=== PATIENT | male | born 1935 | race Caucasian/White ===

== ENCOUNTER 2017-01-16 07:55 | Emergency (ER) | payer OTHER ==
[~2017-01-16] VITALS: Ht 177.8 cm; Wt 94.5 kg
[~2017-01-16 07:55] MED LIST: ALLOPURINOL300 MG PO; AMLODIPINE BESY10 MG PO; AMLODIPINE BESYL5 MG PO; ASPIRIN325 MG PO; CIPRO500 MG PO; CLOPIDOGREL75 MG PO; Coumadin Daily Dose PO; DULCOLAX10 MG PR; ENDOCET 5-3251 EACH PO; ERGOCALCIF50000 UNIT PO; HUMIBID LA,MUC600 MG PO; HYDRALAZINE HCL50 MG PO; LANTUS 3 M100 UNITS/ SC; LEVEMIR FL100 UNIT/1 SC; LEVEMIR100 UNIT/2 SC; LIDOCAINE700 MG TD; LIPITOR10 MG PO; METOPROLOL SUCC50 MG PO; NOVOLOG PE100 UNITS/ SC; PERCOCET 5/31 TABLET PO; PLAVIX75 MG PO; PRAVACHOL40 MG PO; PRAVASTATIN SOD40 MG PO; PROAIR HFA8.5 GM IH; PROVENTIL,2.5 MG/3 M IH; PULMICORT0.5 MG/21 IH; SENNA-TIME S T1 EACH PO; SINGULAIR10 MG PO; Sodium Bicarbonate PO; THEO-24200 MG PO; TRAMADOL HCL50 MG PO; TYLENOL WITH C1 EACH PO; Tylenol Regular Stre PO; ULORIC40 MG PO; ZESTRIL20 MG PO; Zestril,Prinivil PO
[2017-01-16 08:46] LABS: EOSINOPHIL (%) 4.3 % (0-5); EOSINOPHIL COUNT 0.5 K/uL (0-0.3); HEMATOCRIT 38.7 % (38.0-50.0); IMMATURE GRANULOCYTE (%) 0.2 % (0.0-0.7); INSTRUMENT ABS NEUTROPHIL CT 7.9 K/uL; LYMPHOCYTE COUNT 1.3 K/uL (1.0-2.8); MCH 30.4 PG (29.0-34.0); MCV 94.9 FL (86-99); MEAN PLAT.VOLUME 9.7 uM^3 (9.0-12.4); MONOCYTE (%) 8.1 % (3-12); MONOCYTE COUNT 0.9 K/uL (0-0.8); NEUTROPHIL (%) 74.9 % (45-76); NEUTROPHIL COUNT 7.9 K/uL (1.8-6.4); PLATELET COUNT 247 K/uL (156-360); RBC DIS.WIDTH-CV 14.7 % (11.8-14.6); RBC DIS.WIDTH-SD 51.2 % (39-53); RED BLOOD COUNT 4.08 M/uL (4.00-5.50); WHITE BLOOD COUNT 10.6 K/uL (4.1-10.2)
[2017-01-16 08:59] LABS: CHLORIDE 108 mEq/L (99-109); POTASSIUM 4.8 mEq/L (3.7-5.4); SODIUM 141 mEq/L (136-147)
[2017-01-16 09:01] LABS: GLUCOSE 243 mg/dL (70-99)
[2017-01-16 09:02] LABS: ANION GAP 14 MEQ/L (2-14)
[2017-01-16 09:05] LABS: GFR ESTIMATE (CALCULATED) 11 mL/min/; UREA NITROGEN (BUN) 41 mg/dL (9-23)
[2017-01-16] MEDS ORDERED: CITRATE OF MAG296 ML PO (12:37)
[2017-01-16 12:47] VITALS: BP 138/101
== END 2017-01-16 12:48 | disposition home or self-care (01) ==
LOC: EME 07:55
PROVIDERS: Emergency Medicine
DX: K56.41 Fecal impaction (principal); I12.9 Hypertensive chronic kidney disease with stage 1 through stage 4 chronic kidney disease, or unspecified chronic kidney disease; E11.22 Type 2 diabetes mellitus with diabetic chronic kidney disease; N18.9 Chronic kidney disease, unspecified; Z79.4 Long term (current) use of insulin; Z79.82 Long term (current) use of aspirin; Z85.51 Personal history of malignant neoplasm of bladder; Z93.6 Other artificial openings of urinary tract status; Z87.891 Personal history of nicotine dependence
CPT/HCPCS: 74020; 80048; 85025; 99281; 99284

== ENCOUNTER 2017-01-30 11:27 | Inpatient (IN) | payer OTHER ==
[~2017-01-30] VITALS: Ht 180.3 cm; Wt 89.3 kg
[~2017-01-30 11:27] MED LIST changes: +CITRATE OF MAG296 ML PO
[2017-01-30 12:05] LABS: MCH 30.8 PG (29.0-34.0); MCHC 32.8 G/DL (30.0-36.0); PLATELET COUNT 304 K/uL (156-360); RBC DIS.WIDTH-CV 14.7 % (11.8-14.6); RBC DIS.WIDTH-SD 50.4 % (39-53); RED BLOOD COUNT 3.83 M/uL (4.00-5.50); WHITE BLOOD COUNT 14.8 K/uL (4.1-10.2)
[2017-01-30 12:16] LABS: CHLORIDE 113 mEq/L (99-109); POTASSIUM 5.4 mEq/L (3.7-5.4); SODIUM 138 mEq/L (136-147)
[2017-01-30 12:18] LABS: GLUCOSE 165 mg/dL (70-99)
[2017-01-30 12:19] LABS: ANION GAP 8 MEQ/L (2-14)
[2017-01-30 12:20] LABS: TOTAL BILIRUBIN 0.5 mg/dL (0.0-1.0)
[2017-01-30 12:21] LABS: ALKALINE PHOSPHATASE 73 IU/L (3-129)
[2017-01-30 12:22] LABS: GFR ESTIMATE (CALCULATED) 12 mL/min/
[2017-01-30 12:23] LABS: UREA NITROGEN (BUN) 71 mg/dL (9-23)
[2017-01-30 13:20] LABS: INTER. NORMALIZED RATIO 1.1; PROTHROMBIN TIME 12.5 SEC (10.2-12.9)
[2017-01-30] MEDS ORDERED: NOVOLOG PE100 UNITS/ SC (15:03)
[2017-01-30 17:23] VITALS: BP 150/74
[2017-01-30 19:58] VITALS: BP 164/68
[2017-01-30 21:19] LABS: ADD MIUA? YES; BILIRUBIN NEGATIVE; BLOOD SMALL; COLOR YELLOW ((YELLOW)); GLUCOSE (STRIP) 50; KETONES NEGATIVE; LEUKOCYTES LARGE; NITRITE NEGATIVE; PROTEIN (STRIP) 100; SPECIFIC GRAVITY 1.011 (1.000-1.030); UROBILINOGEN 0.2 MG/DL (0.2-1.0)
[2017-01-30 22:00] LABS: EPITHELIAL CELLS RARE /HPF; MUCUS RARE /LPF; WHITE BLOOD CELLS TNTC /HPF (0-5)
[2017-01-30 22:01] LABS: BACTERIA 1+ /HPF; CASTS PRESENT /LPF; CRYSTALS NONE SEEN; HYALINE CASTS 0-5 /LPF; UCUL ADDED? YES
[2017-01-30 23:44] VITALS: BP 134/63
[2017-01-31 03:19] VITALS: BP 149/70; BP 163/68
[2017-01-31 06:46] LABS: EOSINOPHIL (%) 2.7 % (0-5); EOSINOPHIL COUNT 0.4 K/uL (0-0.3); HEMATOCRIT 36.7 % (38.0-50.0); IMMATURE GRANULOCYTE (%) 0.3 % (0.0-0.7); LYMPHOCYTE COUNT 1.5 K/uL (1.0-2.8); MCH 31.7 PG (29.0-34.0); MCHC 33.5 G/DL (30.0-36.0); MCV 94.6 FL (86-99); MEAN PLAT.VOLUME 10.5 uM^3 (9.0-12.4); MONOCYTE (%) 6.1 % (3-12); MONOCYTE COUNT 0.8 K/uL (0-0.8); NEUTROPHIL (%) 79.8 % (45-76); PLATELET COUNT 282 K/uL (156-360); RBC DIS.WIDTH-CV 14.9 % (11.8-14.6); RBC DIS.WIDTH-SD 51.6 % (39-53); RED BLOOD COUNT 3.88 M/uL (4.00-5.50); WHITE BLOOD COUNT 13.8 K/uL (4.1-10.2)
[2017-01-31 07:06] LABS: ANION GAP 12 MEQ/L (2-14); CHLORIDE 113 MEQ/L (99-109); GFR ESTIMATE (CALCULATED) 13 mL/min/; POTASSIUM 5.1 MEQ/L (3.7-5.4); SAMPLE HEMOLYSIS CHECK 0; SAMPLE ICTERIC CHECK 0; SAMPLE LIPEMIA CHECK 0; SODIUM 140 MEQ/L (136-147); UREA NITROGEN (BUN) 64 mg/dL (9-23)
[2017-01-31 07:09] LABS: GLUCOSE 74 mg/dL (70-99)
[2017-01-31 07:35] VITALS: BP 136/64
[2017-01-31 10:40] LABS: AHBS INDEX 0.28; HBSG INDEX 0.16; HEPATITIS B SURFACE ANTIBODY Nonreactive
[2017-01-31 11:22] VITALS: BP 150/74
[2017-01-31] MEDS ORDERED: AMLODIPINE BESY10 MG PO (14:54)
[2017-01-31] MEDS ORDERED: CARVEDILOL12.5 MG PO (14:55)
[2017-01-31] MEDS ORDERED: CALCITRIOL0.25 MCG PO (14:55)
[2017-01-31 15:28] VITALS: BP 143/65
[2017-01-31 16:42] LABS: POINT-OF-CARE METER ID UU14188625
[2017-01-31 19:37] VITALS: BP 145/67
[2017-01-31 22:10] LABS: POINT-OF-CARE METER ID UU14188625
[2017-01-31 23:49] VITALS: BP 140/66
[2017-02-01 04:44] VITALS: BP 147/67
[2017-02-01 07:02] LABS: HEMATOCRIT 36.5 % (38.0-50.0); MCH 31.6 PG (29.0-34.0); MCV 93.1 FL (86-99); MEAN PLAT.VOLUME 10.3 uM^3 (9.0-12.4); PLATELET COUNT 213 K/uL (156-360); RBC DIS.WIDTH-CV 14.6 % (11.8-14.6); RBC DIS.WIDTH-SD 49.7 % (39-53); RED BLOOD COUNT 3.92 M/uL (4.00-5.50); WHITE BLOOD COUNT 10.3 K/uL (4.1-10.2)
[2017-02-01 07:29] LABS: ANION GAP 12 MEQ/L (2-14); CHLORIDE 108 MEQ/L (99-109); POTASSIUM 4.4 MEQ/L (3.7-5.4); SAMPLE HEMOLYSIS CHECK 0; SAMPLE ICTERIC CHECK 0; SAMPLE LIPEMIA CHECK 0; SODIUM 141 MEQ/L (136-147); UREA NITROGEN (BUN) 45 mg/dL (9-23)
[2017-02-01 07:30] LABS: GFR ESTIMATE (CALCULATED) 17 mL/min/; GLUCOSE 120 mg/dL (70-99)
[2017-02-01 08:00] VITALS: BP 158/74
[2017-02-01 08:31] LABS: POINT-OF-CARE METER ID UU14188625
[2017-02-01 11:15] VITALS: BP 152/78
[2017-02-01] MEDS ORDERED: CARVEDILOL12.5 MG PO (15:13)
[2017-02-01] MEDS ORDERED: ELIQUIS2.5 MG PO (15:14)
[2017-02-01] MEDS ORDERED: HYDROCODON-ACE1 EAC7 PO (15:14)
[2017-02-01 17:52] LABS: POINT-OF-CARE METER ID UU14188625
[2017-02-01 20:31] VITALS: BP 139/76
[2017-02-01 22:13] LABS: POINT-OF-CARE METER ID UU13113717
[2017-02-01 23:38] VITALS: BP 149/61
[2017-02-02 06:12] LABS: EOSINOPHIL (%) 0 % (0-5); HEMATOCRIT 36.1 % (38.0-50.0); IMMATURE GRANULOCYTE (%) 0.5 % (0.0-0.7); INSTRUMENT ABS NEUTROPHIL CT 6.8 K/uL; LYMPHOCYTE COUNT 0.7 K/uL (1.0-2.8); MCH 31.8 PG (29.0-34.0); MCHC 33.5 G/DL (30.0-36.0); MONOCYTE (%) 2.9 % (3-12); MONOCYTE COUNT 0.2 K/uL (0-0.8); NEUTROPHIL (%) 87.7 % (45-76); NEUTROPHIL COUNT 6.8 K/uL (1.8-6.4); PLATELET COUNT 194 K/uL (156-360); RBC DIS.WIDTH-CV 14.3 % (11.8-14.6); RBC DIS.WIDTH-SD 49.4 % (39-53); WHITE BLOOD COUNT 7.8 K/uL (4.1-10.2)
[2017-02-02 06:37] LABS: ANION GAP 12 MEQ/L (2-14); CHLORIDE 102 MEQ/L (99-109); GFR ESTIMATE (CALCULATED) 19 mL/min/; MAGNESIUM 1.9 mg/dl (1.3-2.7); POTASSIUM 4.8 MEQ/L (3.7-5.4); SAMPLE HEMOLYSIS CHECK 0; SAMPLE ICTERIC CHECK 0; SAMPLE LIPEMIA CHECK 0; SODIUM 139 MEQ/L (136-147); UREA NITROGEN (BUN) 38 mg/dL (9-23)
[2017-02-02 06:39] LABS: GLUCOSE 352 mg/dL (70-99)
[2017-02-02 07:30] VITALS: BP 140/64
[2017-02-02] MEDS ORDERED: CARDIZEM30 MG PO (10:56)
[2017-02-02] MEDS ORDERED: LO-DOSE ASPIRIN81 M1 PO (10:57)
[2017-02-02 11:11] VITALS: BP 152/68
== END 2017-02-02 12:00 | disposition home or self-care (01) | DRG 683 ==
LOC: EME 11:27 → 5SOUTH 13:23 → EDOF 13:23 → ENRESERV 13:25 → EME 15:00 → ENRESERV 15:19 → 5SOUTH 16:54
PROVIDERS: Family Medicine; Internal Medicine; Internal Medicine Nephrology
PROC: 02HV33Z Insertion of Infusion Device into Superior Vena Cava, Percutaneous Approach (ICD-10-PCS; principal; 2017-01-30)
PROC: B5181ZA Fluoroscopy of Superior Vena Cava using Low Osmolar Contrast, Guidance (ICD-10-PCS; principal; 2017-01-30)
PROC: 5A1D70Z Performance of Urinary Filtration, Intermittent, Less than 6 Hours Per Day (ICD-10-PCS; 2017-01-31)
DX: N18.6 End stage renal disease (principal); I48.92 Unspecified atrial flutter; E87.5 Hyperkalemia; E87.2 Acidosis; M10.9 Gout, unspecified; I12.0 Hypertensive chronic kidney disease with stage 5 chronic kidney disease or end stage renal disease; E11.21 Type 2 diabetes mellitus with diabetic nephropathy; K21.9 Gastro-esophageal reflux disease without esophagitis; E78.5 Hyperlipidemia, unspecified; E11.22 Type 2 diabetes mellitus with diabetic chronic kidney disease; Z99.2 Dependence on renal dialysis; Z86.73 Personal history of transient ischemic attack (TIA), and cerebral infarction without residual deficits; Z79.4 Long term (current) use of insulin; Z87.891 Personal history of nicotine dependence; Z90.49 Acquired absence of other specified parts of digestive tract; Z85.51 Personal history of malignant neoplasm of bladder; Z93.6 Other artificial openings of urinary tract status
CPT/HCPCS: 36415; 80048; 80053; 80069; 81003; 82948; 83735; 84100; 85025; 85027; 85610; 86706; 87077; 87086; 87186; 87340; 93005; 99281; 99284; C1750; C1769; C1894; J0690; J1644; J1815; J2250; J2405; J2920; J3010; S0020

== ENCOUNTER 2017-04-01 15:30 | Day surgery (SDC) | payer OTHER ==
[~2017-04-01 15:30] MED LIST changes: +CALCITRIOL0.25 MCG PO; +CARDIZEM30 MG PO; +CARVEDILOL12.5 MG PO; +ELIQUIS2.5 MG PO; +HYDROCODON-ACE1 EAC7 PO; +LO-DOSE ASPIRIN81 M1 PO
[2017-04-01 16:09] LABS: POINT-OF-CARE METER ID UU13113696
[2017-04-01 17:35] LABS: METH RESISTANT S AUREUS PCR POSITIVE (NEGATIVE)
[2017-04-01 17:41] LABS: PROBE CHECK PASS
== END 2017-04-01 18:50 | disposition home or self-care (01) ==
LOC: CATH 15:30
PROVIDERS: Surgery
PROC: 0J2SXYZ Change Other Device in Head and Neck Subcutaneous Tissue and Fascia, External Approach (ICD-10-PCS; principal; 2017-04-01)
DX: T82.41XA Breakdown (mechanical) of vascular dialysis catheter, initial encounter (principal); I12.0 Hypertensive chronic kidney disease with stage 5 chronic kidney disease or end stage renal disease; E11.22 Type 2 diabetes mellitus with diabetic chronic kidney disease; N18.6 End stage renal disease; Z99.2 Dependence on renal dialysis; Z87.891 Personal history of nicotine dependence; Z79.4 Long term (current) use of insulin; Z85.528 Personal history of other malignant neoplasm of kidney; Z86.73 Personal history of transient ischemic attack (TIA), and cerebral infarction without residual deficits; Z86.718 Personal history of other venous thrombosis and embolism; Z79.01 Long term (current) use of anticoagulants
CPT/HCPCS: 82948; 87641; C1750; J0690; J1200; J1644; J2250; J3010; S0020

== ENCOUNTER 2017-04-10 09:44 | Day surgery (SDC) | payer OTHER ==
[~2017-04-10] VITALS: Ht 180.3 cm; Wt 104.3 kg
[~2017-04-10 09:44] MED LIST changes: +ADVIL200 MG PO
[2017-04-10 10:28] VITALS: BP 129/65
[2017-04-10 10:39] LABS: HEMATOCRIT 34.5 % (38.0-50.0); MCH 32.4 PG (29.0-34.0); MCHC 32.2 G/DL (30.0-36.0); MCV 100.6 FL (86-99); MEAN PLAT.VOLUME 10.6 uM^3 (9.0-12.4); PLATELET COUNT 158 K/uL (156-360); RBC DIS.WIDTH-CV 16.1 % (11.8-14.6); RBC DIS.WIDTH-SD 58.6 % (39-53); RED BLOOD COUNT 3.43 M/uL (4.00-5.50); WHITE BLOOD COUNT 8.1 K/uL (4.1-10.2)
[2017-04-10 11:09] LABS: ANION GAP 12 MEQ/L (2-14); CHLORIDE 104 MEQ/L (99-109); GFR ESTIMATE (CALCULATED) 13 mL/min/ (58.99-99999); GLUCOSE 134 mg/dL (70-99); POTASSIUM 4.1 MEQ/L (3.7-5.4); SAMPLE HEMOLYSIS CHECK 0; SAMPLE ICTERIC CHECK 0; SAMPLE LIPEMIA CHECK 0; SODIUM 142 MEQ/L (136-147); UREA NITROGEN (BUN) 45 mg/dL (9-23)
[2017-04-10 11:28] LABS: METH RESISTANT S AUREUS PCR POSITIVE (NEGATIVE)
[2017-04-10 11:32] LABS: PROBE CHECK PASS; SPECIMEN PROCESSING CONTROL PASS
[2017-04-10 14:24] LABS: POINT-OF-CARE METER ID UU13113675; POINT-OF-CARE USER ID 515036437
[2017-04-10 15:24] VITALS: BP 132/60
[2017-04-10 16:00] VITALS: BP 119/57
== END 2017-04-10 16:15 | disposition home or self-care (01) ==
LOC: SDC 09:44
PROVIDERS: Surgery
PROC: 03180JD Bypass Left Brachial Artery to Upper Arm Vein with Synthetic Substitute, Open Approach (ICD-10-PCS; principal; 2017-04-10)
DX: I12.0 Hypertensive chronic kidney disease with stage 5 chronic kidney disease or end stage renal disease (principal); E11.22 Type 2 diabetes mellitus with diabetic chronic kidney disease; N18.6 End stage renal disease; Z99.2 Dependence on renal dialysis; Z86.73 Personal history of transient ischemic attack (TIA), and cerebral infarction without residual deficits; Z86.718 Personal history of other venous thrombosis and embolism; Z85.528 Personal history of other malignant neoplasm of kidney; Z87.891 Personal history of nicotine dependence
CPT/HCPCS: 80048; 82948; 85027; 87641; C1768; J0690; J1644; J2405; J2720; J3010

== ENCOUNTER → 2017-05-24 | Outpatient (CLI) | payer OTHER | END | disposition home or self-care (01) | LOC: AMB 07:44 | PROC: 02PYX3Z Removal of Infusion Device from Great Vessel, External Approach (ICD-10-PCS; principal; 2017-05-24) | DX: Z45.2 Encounter for adjustment and management of vascular access device (principal); N18.6 End stage renal disease ==

== ENCOUNTER 2017-12-05 15:00 | Day surgery (SDC) | payer OTHER ==
[2017-12-05] MEDS ORDERED: TRAMADOL HCL50 MG PO (15:33)
== END 2017-12-05 18:13 | disposition home or self-care (01) ==
LOC: CATH 15:00
PROVIDERS: Surgery
DX: T82.868A Thrombosis due to vascular prosthetic devices, implants and grafts, initial encounter (principal); I12.0 Hypertensive chronic kidney disease with stage 5 chronic kidney disease or end stage renal disease; N18.6 End stage renal disease; Z87.891 Personal history of nicotine dependence; Z79.01 Long term (current) use of anticoagulants
CPT/HCPCS: 82948; 87641; C1725; C1757; C1769; C1894; C2628; J0690; J1644; J2250; J3010; S0020

== ENCOUNTER 2017-12-11 14:46 | Observation (INO) | payer OTHER ==
[~2017-12-11] VITALS: Ht 177.8 cm; Wt 98.0 kg
[2017-12-11 15:17] LABS: HEMATOCRIT 37.1 % (38.0-50.0); HEMOGLOBIN 12.8 G/DL (12.5-16.6); MCH 33.4 PG (29.0-34.0); MCHC 34.5 G/DL (30.0-36.0); MCV 96.9 FL (86-99); PLATELET COUNT 200 K/uL (156-360); RBC DIS.WIDTH-CV 14.4 % (11.8-14.6); RED BLOOD COUNT 3.83 M/uL (4.00-5.50); WHITE BLOOD COUNT 12.8 K/uL (4.1-10.2)
[2017-12-11 15:28] LABS: ALBUMIN 3.9 g/dL (3.2-4.8); CHLORIDE 93 mEq/L (99-109); POTASSIUM 4.1 mEq/L (3.7-5.4); SODIUM 133 mEq/L (136-147)
[2017-12-11 15:30] LABS: GLUCOSE 282 mg/dL (70-99); TOTAL PROTEIN 7.6 g/dL (6.4-8.3)
[2017-12-11 15:34] LABS: ALKALINE PHOSPHATASE 80 IU/L (3-129); CREATININE 5.6 mg/dL (0.6-1.3); GFR ESTIMATE (CALCULATED) 10 mL/min/ (58.99-99999)
[2017-12-11 15:35] LABS: AST (GOT) 21 IU/L (2-34); UREA NITROGEN (BUN) 33 mg/dL (9-23)
[2017-12-11 15:37] LABS: ALT (GPT) 13 IU/L (3-49); LIPASE 14 U/L (1.0-51.0)
[2017-12-11 19:26] LABS: APPEARANCE SL.HAZY ((CLEAR)); BILIRUBIN NEGATIVE; BLOOD SMALL; COLOR YELLOW ((YELLOW)); GLUCOSE (STRIP) >=500; KETONES NEGATIVE; LEUKOCYTES NEGATIVE; NITRITE NEGATIVE; PROTEIN (STRIP) >=500; UROBILINOGEN 0.2 MG/DL (0.2-1.0)
[2017-12-11 19:31] LABS: BACTERIA RARE /HPF; EPITHELIAL CELLS RARE /HPF; MUCUS NONE SEEN /LPF; RED BLOOD CELLS 0-5 /HPF (0-5); TRIPLE PHOSPHATE CRYSTALS 2+ /HPF; UCUL ADDED? NO; WHITE BLOOD CELLS 0-5 /HPF (0-5)
[2017-12-11 22:42] VITALS: BP 160/67
[2017-12-12 03:31] VITALS: BP 148/64
[2017-12-12 07:35] VITALS: BP 162/72
[2017-12-12 08:06] LABS: HEMOGLOBIN 12.4 G/DL (12.5-16.6); MCH 32.7 PG (29.0-34.0); MCHC 33.5 G/DL (30.0-36.0); MCV 97.6 FL (86-99); PLATELET COUNT 196 K/uL (156-360); RBC DIS.WIDTH-CV 14.6 % (11.8-14.6); RED BLOOD COUNT 3.79 M/uL (4.00-5.50); WHITE BLOOD COUNT 10.6 K/uL (4.1-10.2)
[2017-12-12 08:30] LABS: ALBUMIN 3.4 G/DL (3.2-4.8); ALKALINE PHOSPHATASE 58 IU/L (3-129); ALT (GPT) 12 IU/L (3-49); AST (GOT) 21 IU/L (2-34); CHLORIDE 94 MEQ/L (99-109); CREATININE 5.4 MG/DL (0.6-1.3); GFR ESTIMATE (CALCULATED) 11 mL/min/ (58.99-99999); GLUCOSE 242 mg/dL (70-99); POTASSIUM 4.2 MEQ/L (3.7-5.4); SODIUM 135 MEQ/L (136-147); TOTAL BILIRUBIN 0.8 MG/DL (0.0-1.0); TOTAL PROTEIN 6.3 G/DL (6.4-8.3); UREA NITROGEN (BUN) 37 mg/dL (9-23)
[2017-12-12 11:39] VITALS: BP 105/52
[2017-12-12 12:24] LABS: HEMOGLOBIN A1c (GLYCOHEMOGLOB) 7.1 % (Below 5.7)
[2017-12-12 15:47] VITALS: BP 126/56
[2017-12-12] MEDS ORDERED: AMLODIPINE BESY10 MG PO (16:06)
[2017-12-12] MEDS ORDERED: ASPIR-LOW81 MG PO (16:08)
[2017-12-12] MEDS ORDERED: CALCIUM ACETAT667 MG PO (16:08)
[2017-12-12] MEDS ORDERED: ELIQUIS2.5 MG PO (16:09)
[2017-12-12] MEDS ORDERED: TRAMADOL HCL50 MG PO (16:09)
[2017-12-12] MEDS ORDERED: LANTUS 10100 UNITS/ SC (16:10)
[2017-12-12] MEDS ORDERED: RENAPLEX-D TAB1 EACH PO (16:12)
[2017-12-12] MEDS ORDERED: COREG12.5 M1 PO (16:15)
[2017-12-12] MEDS ORDERED: CARDIZEM30 MG PO (16:15)
[2017-12-12 19:24] VITALS: BP 137/58
[2017-12-12 23:17] VITALS: BP 107/53
[2017-12-13 07:17] VITALS: BP 126/58
[2017-12-13 11:30] VITALS: BP 118/55
== END 2017-12-13 14:14 | disposition home or self-care (01) ==
LOC: EME 14:46 → EDOF 20:46 → 4SOUTH 20:46 → EDOF 20:46 → ENRESERV 20:49 → 4SOUTH 22:26
PROVIDERS: Internal Medicine
DX: K59.00 Constipation, unspecified (principal); R91.1 Solitary pulmonary nodule; E11.22 Type 2 diabetes mellitus with diabetic chronic kidney disease; I12.0 Hypertensive chronic kidney disease with stage 5 chronic kidney disease or end stage renal disease; N18.6 End stage renal disease; I48.92 Unspecified atrial flutter; Z99.2 Dependence on renal dialysis; Z91.19 Patient's noncompliance with other medical treatment and regimen; D63.1 Anemia in chronic kidney disease; E78.5 Hyperlipidemia, unspecified; Z85.51 Personal history of malignant neoplasm of bladder; Z86.73 Personal history of transient ischemic attack (TIA), and cerebral infarction without residual deficits; Z79.4 Long term (current) use of insulin; M19.90 Unspecified osteoarthritis, unspecified site; Z87.891 Personal history of nicotine dependence; R94.31 Abnormal electrocardiogram [ECG] [EKG]; I35.0 Nonrheumatic aortic (valve) stenosis; Z79.01 Long term (current) use of anticoagulants; Z93.6 Other artificial openings of urinary tract status; Z79.82 Long term (current) use of aspirin; Z85.46 Personal history of malignant neoplasm of prostate
CPT/HCPCS: 71250; 74176; 80053; 81003; 82948; 83036; 83605; 83690; 85027; 99281; 99285; G0378; G8978 GP CI; G8979 GP CH; G8980 GP CI; J1815